=== PATIENT | female | born 1950 | race Two or more races ===

== ENCOUNTER 2024-03-15 12:23 | Emergency (ER) | payer OTHER ==
[~2024-03-15] VITALS: Ht 172.7 cm; Wt 63.5 kg
[2024-03-15] MEDS ORDERED: TETANUS & DIPHTHERIA TOX,ADULT 0.5 ML VIAL IM ONE (13:00)
[2024-03-15] MEDS ORDERED: CEFTRIAXONE SODIUM 1,000 MG VIAL IM ONE (13:00)
[2024-03-15] MEDS ORDERED: AMOX-CLAV 875-1 EACH PO (13:02)
[2024-03-15] MEDS ORDERED: TETANUS DIPHTHERIA TOX. ADSOR 5 ML VIAL IM ONE (13:08)
[2024-03-15] MEDS ORDERED: CEFTRIAXONE SODIUM 1,000 MG VIAL ONE (13:08)
== END 2024-03-15 13:00 | disposition home or self-care (01) ==
LOC: ER 12:25
DX: S91.051A Open bite, right ankle, initial encounter (principal); S91.031A Puncture wound without foreign body, right ankle, initial encounter; W54.0XXA Bitten by dog, initial encounter; Y93.89 Activity, other specified; Y92.89 Other specified places as the place of occurrence of the external cause
CPT/HCPCS: 90471; 90715; J1670